=== PATIENT | female | born 1985 | race African-American/Black ===

== ENCOUNTER 2019-08-30 01:26 | Emergency (ER) | payer OTHER ==
[2019-08-30] MEDS ORDERED: Fluorescein Opthalmic Strip ONE (02:14)
[2019-08-30] MEDS ORDERED: Proparacaine 0.5% Opth 15 ML BOT ONE (02:14)
== END 2019-08-30 02:50 | disposition home or self-care (01) ==
LOC: ERS 01:26
DX: H10.9 Unspecified conjunctivitis (principal)
CPT/HCPCS: 99283

== ENCOUNTER 2021-09-11 17:31 | Emergency (ER) | payer OTHER ==
[2021-09-11] MEDS ORDERED: Ketorolac Tromethamine 30 MG/ML VIAL ONE (18:13)
== END 2021-09-11 18:16 | disposition home or self-care (01) ==
LOC: ERS 17:31
DX: S29.012A Strain of muscle and tendon of back wall of thorax, initial encounter (principal); X50.0XXA Overexertion from strenuous movement or load, initial encounter
CPT/HCPCS: 96372; 99283; J1885